=== PATIENT | male | born 1945 | race Two or more races ===

== ENCOUNTER 2024-09-01 10:41 | Inpatient (IN) | payer MEDICARE, MEDICAID ==
[~2024-09-01] VITALS: Ht 154.9 cm; Wt 56.0 kg
[2024-09-01] MEDS: ASPirin-EC 325mg tab PO ONE (11:25)
[2024-09-01] MEDS: NITROGLYCERIN 0.4 MG SL TAB SL ONE (11:26)
[2024-09-01 11:29] VITALS: PULSE 74; RESP 15; O2SAT 97
[2024-09-01 11:39] LABS: Basophils # (auto) 0 10 ^3/uL (0-0.2); Basophils % (auto) 0.6 % (0.0-2.0); Eosinophils # (auto) 0.2 10 ^3/uL (0-0.8); Eosinophils % (auto) 2.4 % (0.0-7.0); Hematocrit 46.8 % (41.0-53.0); Lymphocytes # (auto) 1.3 10 ^3/uL (0.4-5.4); Lymphocytes % (auto) 19.7 % (10.0-50.0); Mean Corpuscular Hemoglobin 30.4 pg (28.0-32.0); Mean Corpuscular Hgb Conc. 34.1 g/dL (32.0-36.0); Mean Corpuscular Volume 89.2 fL (80.0-100.0); Monocytes # (auto) 0.5 10 ^3/uL (0-1.3); Neutrophils # (auto) 4.5 10 ^3/uL (1.6-8.6); Neutrophils % (auto) 70.3 % (37.0-80.0); Nucleated Red Blood Cells % 0.1 %; Platelet Count (auto) 194 10^3/uL (140-450); Red Blood Cells 5.25 10^6/uL (4.5-5.90); Red Cell Distribution Width 13.7 % (11.8-14.3); White Blood Cell 6.4 10^3/uL (4.4-10.8)
[2024-09-01 11:45] LABS: INR 1.02 (0.9-1.15); Partial Thromboplastin Time 26.6 SEC (24.5-34.5); Prothrombin Time 10.8 sec (9.3-11.8)
[2024-09-01 11:51] LABS: Alanine Aminotransferase 25 U/L (7-40); Albumin 4.5 g/dL (3.2-4.8); Alkaline Phosphatase 78 U/L (46-116); Anion Gap 7 (5-15); Aspartate Aminotransferase 20 U/L (13-40); BUN/Creatinine Ratio 17.8 (10.0-20.0); Blood Urea Nitrogen 19 mg/dL (9-23); Calcium 9.8 mg/dL (8.7-10.4); Carbon Dioxide 26 mmol/L (20-31); Chloride 107 mmol/L (98-107); Glucose 125 mg/dL (74-106); Potassium 3.9 mmol/L (3.5-5.1); Sodium 140 mmol/L (136-145)
[2024-09-01 11:52] LABS: Bilirubin, Total 0.8 mg/dL (0.2-1.0); Total Protein 6.7 g/dL (5.7-8.2)
[2024-09-01 12:17] LABS: Urine Bacteria None Seen /hpf (None Seen)
[2024-09-01 12:47] LABS: Urine Blood Negative /uL (Negative); Urine Clarity Clear (Clear); Urine Color Light-Yellow (Yellow); Urine Protein, UAD Negative (Negative); Urine Specific Gravity 1.031 (1.001-1.035); Urine Urobilinogen Normal (Negative); Urine WBC <1 /hpf (0 - 3); Urine pH 5.5 (5.0-9.0)
[2024-09-01] MEDS ORDERED: ACETAMINOPHEN 325 MG TAB PO PRN (23:00)
[2024-09-01] MEDS ORDERED: hydrALAZINE HCL 20 MG/ML VL IV PRN (23:00)
[2024-09-01] MEDS ORDERED: ONDANSETRON HCL 4 MG/2 ML VIAL IV PRN (23:00)
[2024-09-01] MEDS ORDERED: HYDROcodone-ACET 5/325MG TAB PO PRN (23:00)
[2024-09-01] MEDS ORDERED: DOCUSATE SOD 100 MG CAP PO PRN (23:00)
[2024-09-01] MEDS ORDERED: DEXTROSE (50%) 50ML SYRG IV PRN (23:00)
[2024-09-01] MEDS ORDERED: NITROGLYCERIN 0.4 MG SL TAB SL PRN (23:15)
[2024-09-01] MEDS ORDERED: MORPHINE SULFATE INJ 2 MG/ml SYRG IV PRN (23:15)
[2024-09-02] VITALS (8 sets, daily range): BP systolic 105–143; BP diastolic 62–86; PULSE 65–97; RESP 16–21; TEMP 97.6–98.7; O2SAT 96–98
[2024-09-02] MEDS ORDERED: MET50T PO (02:54)
[2024-09-02] MEDS ORDERED: EMPA1TAB3 PO (02:54)
[2024-09-02] MEDS ORDERED: ASPI81TA28 PO (02:54)
[2024-09-02] MEDS ORDERED: ISOS10TA2 PO (02:54)
[2024-09-02] MEDS ORDERED: METF-372 PO ×2 (02:54)
[2024-09-02] MEDS ORDERED: PRAV20TA3 PO (02:54)
[2024-09-02] MEDS: SODIUM CHLOR 0.9% PF (SALINE LOCK) 10ML VIAL/SYR IV SCH (06:09)
[2024-09-02] MEDS: ACCU-CHEK COMFORT CURVE STRIP VI SCH (06:10)
[2024-09-02] MEDS: InsuLIN REG 1unit/0.01ml Soln (100units/ml) SC SCH (06:10)
[2024-09-02 07:33] LABS: Basophils # (auto) 0 10 ^3/uL (0-0.2); Basophils % (auto) 0.7 % (0.0-2.0); Eosinophils # (auto) 0.3 10 ^3/uL (0-0.8); Eosinophils % (auto) 5.4 % (0.0-7.0); Hematocrit 47.7 % (41.0-53.0); Hemoglobin 16.6 g/dL (13.5-17.5); Lymphocytes # (auto) 1.2 10 ^3/uL (0.4-5.4); Lymphocytes % (auto) 24.7 % (10.0-50.0); Mean Corpuscular Hemoglobin 31.3 pg (28.0-32.0); Mean Corpuscular Hgb Conc. 34.9 g/dL (32.0-36.0); Mean Corpuscular Volume 89.9 fL (80.0-100.0); Monocytes # (auto) 0.4 10 ^3/uL (0-1.3); Monocytes % (auto) 7.8 % (0.0-12.0); Neutrophils # (auto) 2.9 10 ^3/uL (1.6-8.6); Neutrophils % (auto) 61.4 % (37.0-80.0); Nucleated Red Blood Cells % 0.1 %; Platelet Count (auto) 180 10^3/uL (140-450); Red Blood Cells 5.31 10^6/uL (4.5-5.90); Red Cell Distribution Width 13.7 % (11.8-14.3); White Blood Cell 4.8 10^3/uL (4.4-10.8)
[2024-09-02 07:49] LABS: Alanine Aminotransferase 17 U/L (7-40); Albumin 4.4 g/dL (3.2-4.8); Alkaline Phosphatase 71 U/L (46-116); Anion Gap 6 (5-15); Aspartate Aminotransferase 21 U/L (13-40); BUN/Creatinine Ratio 16.7 (10.0-20.0); Blood Urea Nitrogen 15 mg/dL (9-23); Calcium 9.4 mg/dL (8.7-10.4); Carbon Dioxide 25 mmol/L (20-31); Chloride 110 mmol/L (98-107); Glucose 126 mg/dL (74-106); Potassium 3.5 mmol/L (3.5-5.1); Sodium 141 mmol/L (136-145); Total Protein 6.7 g/dL (5.7-8.2)
[2024-09-02] MEDS: ASPirin 81 mg TAB PO SCH (10:02)
[2024-09-02 11:22] LABS: LDL Cholesterol 139 mg/dL (< 100); Triglycerides 55 mg/dL (< 150)
[2024-09-02 11:23] LABS: Cholesterol 211 mg/dL (< 200); HDL Cholesterol 74 mg/dL (40-59)
[2024-09-02] MEDS: ISOSORBIDE DINITRATE 10 MG TAB PO ONE (16:48)
[2024-09-02] MEDS: ATORVASTATIN 20 MG TAB PO ONE (16:49)
[2024-09-02] MEDS: METOPROLOL TARTRATE 25 MG TAB PO ONE (17:42)
[2024-09-02] MEDS: ISOSORBIDE DINITRATE 10 MG TAB PO SCH (21:33)
[2024-09-02] MEDS: ATORVASTATIN 20 MG TAB PO SCH (21:34)
[2024-09-02] MEDS: METOPROLOL TARTRATE 25 MG TAB PO SCH (21:34)
[2024-09-03] VITALS (7 sets, daily range): BP systolic 110–135; BP diastolic 57–83; PULSE 60–91; RESP 15–19; TEMP 36.6; O2SAT 97–98
[2024-09-03 07:52] LABS: Anion Gap 6 (5-15); Carbon Dioxide 26 mmol/L (20-31); Chloride 107 mmol/L (98-107); Potassium 3.9 mmol/L (3.5-5.1); Sodium 139 mmol/L (136-145)
[2024-09-03 07:53] LABS: Calcium 9.9 mg/dL (8.7-10.4)
[2024-09-03 07:58] LABS: Blood Urea Nitrogen 23 mg/dL (9-23); Glucose 98 mg/dL (74-106)
[2024-09-03] MEDS: EMPAGLIFLOZIN 10 MG TAB PO SCH (09:17)
== END 2024-09-03 17:30 | disposition home or self-care (01) | DRG 206 ==
LOC: ER 10:41 → TELE 23:13 → TELE-WESTW 09-02 01:43
PROVIDERS: ADMIT Internal Medicine; ATTEND Internal Medicine
DX: M94.0 Chondrocostal junction syndrome [Tietze] (principal); Z59.00 Homelessness unspecified; E11.65 Type 2 diabetes mellitus with hyperglycemia; E78.5 Hyperlipidemia, unspecified; I10 Essential (primary) hypertension; Z95.2 Presence of prosthetic heart valve; Z79.899 Other long term (current) drug therapy; Z79.4 Long term (current) use of insulin
CPT/HCPCS: 36415; 71045; 80048; 80053; 80061; 81001; 82962; 83036; 84443; 84484; 85025; 85610; 85730; 93005; 93306; G0378; J1815